=== PATIENT | male | born 1985 | race Caucasian/White ===

== ENCOUNTER 2020-10-30 10:01 | Emergency (ER) | payer MEDICAID ==
[~2020-10-30] VITALS: Ht 182.9 cm; Wt 116.1 kg
--- NOTE | 2020-10-30 10:59 | NUR ---
BIBRA ETOH, TO ER BED 11, HOOKED TO [facility]. PATIENT AROUSABLE BY PAINFUL STIMULI. AWAITING MD POLLARD
--- NOTE | 2020-10-30 11:06 | NUR ---
DR NAVARRO AT BEDSIDE
--- NOTE | 2020-10-30 14:30 | NUR ---
food tray provided. tolerating PO well.
--- NOTE | 2020-10-30 16:17 | NUR ---
ADMITTING CELESTE AT BEDSIDE
--- NOTE | 2020-10-30 17:49 | NUR ---
Patient discharged to home in stable condition. Written and verbal after care instructions given. Patient verbalizes understanding of instruction.
[2020-10-30 17:51] VITALS: BP 130/68
== END 2020-10-30 17:51 | disposition home or self-care (01) ==
LOC: ER 10:07
DX: F10.129 Alcohol abuse with intoxication, unspecified (principal); Y90.9 Presence of alcohol in blood, level not specified